=== PATIENT | female | born 2000 | race Caucasian/White ===

== ENCOUNTER 2021-01-24 16:55 | Emergency (ER) | payer OTHER ==
[~2021-01-24] VITALS: Ht 167.7 cm; Wt 61.2 kg
[2021-01-24] MEDS ORDERED: LIDOCAINE 1% INJ 20 ML 20 ML VIAL ONE (17:11)
[2021-01-24] MEDS ORDERED: LIDOCAINE 1% INJ 50 ML (XYLOCAINE) VIAL IJ ONE (17:15)
[2021-01-24] MEDS ORDERED: RX-CEPHALEXIN (KEFLEX) 250 MG CAP PPK#4 PO STA (17:40)
[2021-01-24] MEDS ORDERED: CEPH500T PO (17:44)
--- NOTE | 2021-01-24 17:48 | ED Upper Extremity ---
General Chief Complaint: Laceration Stated Complaint: RIGHT PALM LAC Nursing Triage Note: PT AMB TO [facility] WITH COMPLAINT OF LACERATION ON RIGHT HAND. STATES SHE WAS CARVING A PUMPKIN AND THE KNIFE SLIPPED. PT IS UNABLE TO MOVE RIGHT FIFTH FINGER. (AKASH DONOVAN) History of Present Illness Date Seen by Provider: Jan 24, 2021 Time Seen by Provider: 17:04 Initial Comments 20 year female presents for laceration to palm of right hand from kitchen knife. She was cutting the top off her pumpkin, when the knife slipped. Onset: just prior to arrival Pain/Injury Location: right hand, right 5th finger Method of Injury: incised (kitchen knife) (AKASH DONOVAN) Allergies and Home Medications Allergies Coded Allergies: No Known Drug Allergies (Unverified , 01/24/21) Patient Home Medication List Home Medication List Reviewed: Yes (AKASH DONOVAN) Cephalexin (Cephalexin) 500 Mg Tablet, 500 MG PO TID Prescribed by: AKASH DONOVAN on 01/24/21 7454 Review of Systems Constitutional: no symptoms reported : No Musculoskeletal: see HPI, other (inability to flex 5th digit, right hand) Skin: see HPI, other (laceration to volar surface right hand, over distal metacarpals 4th and 5th) (AKASH DONOVAN) All Other Systems Reviewed Negative Unless Noted: Yes (AKASH DONOVAN) Past Veqvhyi-Fnnhvi-Cfsszu Hx Patient Social History Tobacco Use?: No Use of E-Cig and/or Vaping dev: No Substance use?: No Alcohol Use?: No Pt feels they are or have been: No (AKASH DONOVAN) Family Medical History Reviewed Nursing Family Hx (AKASH DONOVAN) Physical Exam Vital Signs Vital Signs - First Documented 01/24/21 16:59 Temp 36.3 Pulse 118 Resp 20 B/P (MAP) 145/89 (107) Pulse Ox 96 O2 Delivery Room Air (BENTLEY PAYTON MD) Vital Signs Capillary Refill : (AKASH DONOVAN) Height, Weight, BMI Height: '" Weight: lbs. oz. kg; 21.00 BMI Method: General Appearance: WD/WN, no apparent distress Cardiovascular: normal peripheral pulses, regular rate, rhythm Respiratory: chest non-tender, lungs clear, normal breath sounds Hand: Right, laceration (4 cm, volar surface right hand, over distal 4-5th metacarpals), limited ROM (Full ext, resisted ext 5/5 5th finger right. Unable to actively flex at MCP, PIP or DIP. If passively flexed, she is unable to maintain flex of the 5th finger. She has full flex/ext of 1-4th digits right hand, power V/V with resisted flex/ext), soft tissue tenderness Neurologic/Psychiatric: no motor/sensory deficits, alert, normal mood/affect, oriented x 3 Skin: normal color, warm/dry (AKASH DONOVAN) Procedures/Interventions Wound Location: Upper Extremities (right hand) Wound Length (cm): 4 Wound's Depth, Shape: into muscle, linear Wound Explored: clean Irrigated w/ Saline (ccs): 500 Betadine Prep?: Yes Anesthesia: 1% Lidocaine Volume Anesthetic (ccs): 6 Wound Debrided: minimal Suture: Ethlion Suture Size: 4-0 Number of Sutures: 4 Sterile Dressing Applied?: Yes Progress Patient tolerated procedure well. Loosely approximated, sterile bulky dressing placed. (AKASH DONOVAN) Splinting and Joint Reduction : Pre-Proc Neuro Vasc Exam: normal Post-Proc Neuro Vasc Exam: normal Hand-Made Type: orthoglass Splint Application: Short Arm (Ulnar splint to right hand, with 4-5th fingers flex 45 degrees at MCP. ) (AKASH DONOVAN) Progress/Results/Core Measures Results/Orders Blood Pressure Mean: 107 Progress Progress Note : Time: 17:04 Progress Note Patient seen and evaluated, tetanus last given in 2017. [address] Bahena at [facility] in [place], he will see patient tomorrow and plan surgery for later this week. Recommended splint, with 5th finger flexed approx 45 degrees. (AKASH DONOVAN) Diagnostic Imaging Diagonstic Imaging: Xray Plain Films/CT/US/NM/MRI: chest Comments NAME: BELINDA MURRAY MED REC#: [id number] PT STATUS: REG ER : 2000 PHYSICIAN: AKASH DONOVAN ADMIT DATE: 01/24/21/ER Signed Date of Exam:01/24/21 HAND, RIGHT, 3 VIEWS CLINICAL HISTORY: Right hand pain. Hand laceration. COMPARISON: None. TECHNIQUE: Three views of the right hand. FINDINGS: There is no acute fracture or dislocation of the right hand. Alignment is anatomic. No focal osseous lesion is seen. Laceration is seen adjacent to the 3rd and 4th proximal phalanges. No radiopaque foreign bodies are seen. IMPRESSION: 1. No acute fracture or dislocation in the right hand. 2. Laceration adjacent to the 3rd and 4th proximal phalanges. No radiopaque foreign body. Dictated by: Dictated on workstation # [id number] Dict: 01/24/211809 Trans: 01/24/211825 [facility] [id number] Interpreted by: HERBERT DEE DO Electronically signed by: HERBERT DEE DO 01/24/211825 (AKASH DONOVAN) Departure Impression Primary Impression: Laceration of flexor tendon of right hand Qualified Codes: S66.821A - Laceration of other specified muscles, fascia and tendons at wrist and hand level, right hand, initial encounter Disposition: 01 HOME, SELF-CARE Condition: Improved Departure-Patient Inst. Decision time for Depature: 17:55 (AKASH DONOVAN) Referrals: NO,LOCAL PHYSICIAN (PCP/Family) Primary Care Physician Patient Instructions: Laceration Repair With Stitches (DC), Tendon Laceration (DC) Add. Discharge Instructions: Keep wound clean and dry, leave the current dressing in place and re-inforce, if needed. Follow up with Dr. Bahena: Call Monday at 8-9 am [phone] for appointment in the afternoon. Take antibiotics, as prescribed. Leave splint on at all times, until follow up with Dr. Bahena. You may alternate between Tylenol 650 mg and ibuprofen 600 mg every 4 hours for pain. If the dressing becomes saturated with blood reinforce with guaze, apply ice pack and elevate higher than your heart. Return to the Emergency Dept for new, urgent healthcare needs. All discharge instructions reviewed with patient and/or family. Voiced understanding. Scripts Cephalexin (Cephalexin) 500 Mg Tablet 500 MG PO TID, #15 TAB 0 Refills Prov: AKASH DONOVAN 01/24/21 ATTENDING PHYSICIAN NOTE: I was physically present as attending physician in the emergency department during the care of this patient, but I was not directly involved in the decision making or delivery of care for this patient. (BENTLEY PAYTON MD) AKASH DONOVAN Jan 24, 2021 17:48 BENTLEY PAYTON MD Jan 26, 2021 07:06
--- NOTE | 2021-01-24 18:28 | Diagnostic Imaging Report ---
CLINICAL HISTORY: Right hand pain. Hand laceration. COMPARISON: None. TECHNIQUE: Three views of the right hand. FINDINGS: There is no acute fracture or dislocation of the right hand. Alignment is anatomic. No focal osseous lesion is seen. Laceration is seen adjacent to the 3rd and 4th proximal phalanges. No radiopaque foreign bodies are seen. IMPRESSION: 1. No acute fracture or dislocation in the right hand. 2. Laceration adjacent to the 3rd and 4th proximal phalanges. No radiopaque foreign body. Dictated by: Dictated on workstation # [id number]
[2021-01-24 18:44] VITALS: BP 145/89
== END 2021-01-24 18:44 | disposition home or self-care (01) ==
LOC: ER 16:57
DX: S66.821A Laceration of other specified muscles, fascia and tendons at wrist and hand level, right hand, initial encounter (principal); W26.0XXA Contact with knife, initial encounter
CPT/HCPCS: 12002; 29125; 73130; 84703

== ENCOUNTER 2021-09-09 08:44 | Emergency (ER) | payer SELFPAY ==
[~2021-09-09] VITALS: Ht 170.1 cm; Wt 63.5 kg
[~2021-09-09 08:44] MED LIST: CEPH500T PO
--- NOTE | 2021-09-09 09:22 | ED General ---
General Chief Complaint: Exposure Stated Complaint: POST EXP RABIES VAC Nursing Triage Note: pt ambulatory to room. pt states about a week ago her hand was close to a bat for a couple of minutes. pt states she wants to make sure if she does or does not need post rabies exposure care. pt denies having any other complaints (JAYCE CHOI) History of Present Illness Date Seen by Provider: Sep 09, 2021 Time Seen by Provider: 09:05 Initial Comments 21 year old female presents to the ED today via private vehicle out of concern for a bat exposure she had 8 days ago. She is working at [employer] in [place], [place] this summer. 8 days ago she was cleaning a cabin and was reaching into the attic of the cabin to clean and reports noticing after several minutes there was a bat in close proximity to her hand that was hissing at her while she was cleaning. She denies feeling the bat scratch or bite her and did not see any skin abrasions or puncture salazar at the time. She has not had a potential rebies exposure in the past requiring prophylaxis treatment. Since the incident she denies fever, chills, malaise, hypersalivation, or inability to drink water. Since the incident she has just grown increasingly anxious about the exposure and came in today out of caution. Timing/Duration: Other (Bat exposure was 8 days ago.) (JAYCE CHOI) Allergies and Home Medications Allergies Coded Allergies: No Known Drug Allergies (Unverified , 01/24/21) Patient Home Medication List Home Medication List Reviewed: Yes (AURELIA LOPEZ MD) Cephalexin (Cephalexin) 500 Mg Tablet, 500 MG PO TID Prescribed by: AKASH DONOVAN on 01/24/211743 Review of Systems Review of Systems Constitutional: No chills, No fever, No malaise EENTM: other (Denies hypersalivation); No ear pain, No vision loss, No mouth pain, No throat swelling Respiratory: No cough, No short of breath Cardiovascular: No chest pain, No palpitations Gastrointestinal: No abdominal pain, No constipation, No diarrhea, No nausea, No vomiting Genitourinary: No dysuria; frequency (normal); No hematuria : No (LMP 3 weeks ago) Musculoskeletal: No back pain, No muscle cramps, No muscle weakness, No neck pain Skin: No change in color, No lesions, No rash Psychiatric/Neurological: Anxiety Hematologic/Lymphatic: No Symptoms Reported Immunological/Allergic: no symptoms reported (JAYCE CHOI) Past Rwkhbsc-Kqmuaz-Sevoqb Hx Patient Social History Tobacco Use?: No Use of E-Cig and/or Vaping dev: No Substance use?: No Alcohol Use?: No (JAYCE CHOI) Past Medical History Surgeries: Yes (tendon repair in right hand following laceration.) Respiratory: No Cardiac: No Neurological: No Reproductive Disorders: No Female Reproductive Disorders: Denies Genitourinary: No Gastrointestinal: No Musculoskeletal: No Endocrine: No HEENT: No Hearing Impairment: Denies Cancer: No Psychosocial: Yes Anxiety (w/ panic disorder) Integumentary: No Blood Disorders: No (JAYCE CHOI) Physical Exam Vital Signs Vital Signs - First Documented 09/09/21 09/09/21 08:54 10:10 Temp 36.4 Pulse 111 Resp 18 B/P (MAP) 153/93 (113) Pulse Ox 98 O2 Delivery Room Air (AURELIA LOPEZ MD) Vital Signs Capillary Refill : (JAYCE CHOI) Height, Weight, BMI Height: '" Weight: lbs. oz. kg; 21.00 BMI Method: General Appearance: No Apparent Distress, WD/WN, Anxious (mild) Eyes: Bilateral Eye Normal Inspection, Bilateral Eye PERRL, Bilateral Eye EOMI HEENT: PERRL/EOMI, TMs Normal, Pharynx Normal Neck: Full Range of Motion, Non Tender, Supple Respiratory: Lungs Clear, Normal Breath Sounds, No Respiratory Distress Cardiovascular: No Murmur, Normal Peripheral Pulses, Tachycardia (100-110's while in the room. reports frequently elevated due to anxiety. 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 Norm as Tested Skin: Normal Color, Warm/Dry, Other (no bitemarks, puncture salazar, or open wounds visible on hands or arms.) Lymphatic: No Adenopathy (JAYCE CHOI) Procedures/Interventions Suture Size: 4-0 (JAYCE CHOI) Progress/Results/Core Measures Suspected Sepsis SIRS Temperature: Pulse: 111 Respiratory Rate: 18 Blood Pressure 153 /93 Mean: 113 (JAYCE CHOI) Results/Orders Vital Signs/I&O 09/09/21 09/09/21 08:54 10:10 Temp 36.4 Pulse 111 97 Resp 18 18 B/P (MAP) 153/93 (113) 135/85 Pulse Ox 98 97 O2 Delivery Room Air (AURELIA LOPEZ MD) Vital Signs/I&O Capillary Refill : (JAYCE CHOI) Blood Pressure Mean: 113 Progress Note : Time: 10:02 Progress Note I have seen and examined the patient. I have reviewed and agree with medical students documentation and plan of care. Much research has been done on this "exposure to a bat". All of the information I have gathered indicates that this would be an extremely low, to 0 risk of debbie rabies. I did call the [facility] department and spoke with Alva the epidemiological nurse at the health department. She also indicates to me that this would be a very low risk exposure to no risk exposure. We do not believe at this time it warrants postexposure prophylaxis. Patient is completely asymptomatic. She is 8 days post interaction around the back. She has no open wounds on her hands or extremities or face. She did not have direct physical contact with the bat. From the research this morning she would have to have direct physical contact with the bat. She states she was only there for couple of minutes when she determined that the bat was present. It was "hissing" at her. Initially she was concerned that maybe with his saying it had spewed saliva and she may have rubbed her eyes. I do not think that even this would constitute an actual exposure as I do not believe that the hissing would have produced much back saliva to have inoculated her skin and transmitted to her eyes. That is if in fact she had rubbed her eyes while she was cleaning in the attic. Patient is a little bit apprehensive but comfortable with the information provided. No other clinical or objective findings to warrant further testing or evaluation from the emergency department. All questions are sought and answered. (AURELIA LOPEZ MD) Departure Impression Primary Impression: Encounter for patient concern about exposure to infectious organism Disposition: 01 HOME, SELF-CARE Condition: Stable Departure-Patient Inst. Decision time for Depature: 10:06 (AURELIA LOPEZ MD) Referrals: NO,LOCAL PHYSICIAN (PCP/Family) Primary Care Physician Add. Discharge Instructions: Please follow-up with your primary care physician as needed. Return to the emergency department for any new, concerning or emergent complaints. JAYCE CHOI Sep 09, 2021 09:22 AURELIA LOPEZ MD Sep 09, 2021 10:07
[2021-09-09 10:10] VITALS: BP 135/85
== END 2021-09-09 10:11 | disposition home or self-care (01) ==
LOC: EDUNIT# 08:44 → ER 08:47
DX: Z20.9 Contact with and (suspected) exposure to unspecified communicable disease (principal)
CPT/HCPCS: 99281

== ENCOUNTER 2021-09-09 10:49 | Emergency (ER) | payer SELFPAY ==
[~2021-09-09] VITALS: Ht 170.1 cm; Wt 70.1 kg
[2021-09-09 11:00] VITALS: BP 140/95
[2021-09-09] MEDS ORDERED: RABIES VACCINE HUMAN DIPL CELL 1 ML/2.5 UNITS SYR IM ONE (11:15)
[2021-09-09] MEDS ORDERED: RABIES IMMUNE GLOBULIN (KEDRAB) 1,500 UNITS/10 ML IM ONE (11:15)
--- NOTE | 2021-09-09 11:18 | ED General ---
General Chief Complaint: Exposure Stated Complaint: POST EXP VAC Nursing Triage Note: pt ambulatory to room. pt was seen in ER earlier today for possible rabies exposure. pt was in close contact to a bat "about a week ago" Source of Information: Patient Exam Limitations: No Limitations History of Present Illness Date Seen by Provider: Sep 09, 2021 Time Seen by Provider: 11:15 Initial Comments Patient is a 21-year-old female who presents ED requesting rabies vaccine. She was seen here earlier and had concern for bat exposure 8 days ago at [facility] this summer. She was cleaning out a cabin and was reaching to the attic of the cabin to clean and reports noticing a bat in her proximity to her hand. She denies feeling a scratch or bite but did not see any skin abrasions or puncture salazar at that time. She has not had potential rabies exposure in the past and requesting prophylactic treatment at this time. Patient is up-to-date on her tetanus Allergies and Home Medications Allergies Coded Allergies: No Known Drug Allergies (Unverified , 01/24/21) Patient Home Medication List Home Medication List Reviewed: Yes Cephalexin (Cephalexin) 500 Mg Tablet, 500 MG PO TID Prescribed by: AKASH DONOVAN on 01/24/21 6321 Review of Systems Review of Systems Constitutional: No chills, No diaphoresis, No fever, No malaise, No weakness EENTM: No blurred vision, No double vision Respiratory: No cough Cardiovascular: No chest pain Gastrointestinal: No abdominal pain, No diarrhea, No dysphagia, No nausea, No vomiting Genitourinary: No decreased output, No discharge Musculoskeletal: No back pain, No joint pain Skin: No change in hair/nails All Other Systems Reviewed Negative Unless Noted: Yes Past Bxihren-Bdojpm-Ezcesb Hx Patient Social History Tobacco Use?: No Use of E-Cig and/or Vaping dev: No Substance use?: No Alcohol Use?: No Immunizations Up To Date Influenza Vaccine Up-to-Date: No; Not Current Past Medical History Surgeries: Yes (tendon repair in right hand following laceration.) Respiratory: No Cardiac: No Neurological: No Reproductive Disorders: No Female Reproductive Disorders: Denies Genitourinary: No Gastrointestinal: No Musculoskeletal: No Endocrine: No HEENT: No Hearing Impairment: Denies Cancer: No Psychosocial: Yes Anxiety Integumentary: No Blood Disorders: No Physical Exam Vital Signs Vital Signs - First Documented 09/09/21 11:00 Temp 36.5 Pulse 11 Resp 18 B/P (MAP) 140/95 (110) Pulse Ox 98 Capillary Refill : Height, Weight, BMI Height: '" Weight: lbs. oz. kg; 24.00 BMI Method: General Appearance: No Apparent Distress, WD/WN Eyes: Bilateral Eye Normal Inspection, Bilateral Eye PERRL, Bilateral Eye EOMI HEENT: PERRL/EOMI, TMs Normal, Normal ENT Inspection, Pharynx Normal Neck: Full Range of Motion, Normal Inspection, Non Tender, Supple Respiratory: Chest Non Tender, Lungs Clear, Normal Breath Sounds, No Accessory Muscle Use Cardiovascular: Regular Rate, Rhythm, No Edema, No Gallop, No JVD, No Murmur Gastrointestinal: Normal Bowel Sounds, No Organomegaly, No Pulsatile Mass, Non Tender, Soft Extremity: Normal Capillary Refill, Normal Inspection, Normal Range of Motion, Non Tender Neurologic/Psychiatric: Alert, Oriented x3, No Motor/Sensory Deficits, Normal 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/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, 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 Norm as Tested Skin: Normal Color, Warm/Dry Procedures/Interventions Suture Size: 4-0 Progress/Results/Core Measures Suspected Sepsis SIRS Temperature: Pulse: 11 Respiratory Rate: 18 Blood Pressure 140 /95 Mean: 110 Results/Orders My Orders Orders - DERECK WONG Rabies Vaccine Human Dipl Cell (Rabavert (09/09/21 11:15) Rabies Immune Globulin/Pf 10ml (Kedrab 1 (09/09/21 11:15) Vital Signs/I&O 09/09/21 11:00 Temp 36.5 Pulse 11 Resp 18 B/P (MAP) 140/95 (110) Pulse Ox 98 Capillary Refill : Blood Pressure Mean: 110 Departure Communication (PCP) Right before administration of the rabies vaccine immunoglobulin patient refused. Patient initially came to the ED stating that she was wanting the rabies vaccine and immunoglobulin. She was concerned that the bat was "hissing" and may have had some saliva on her hand and she may have touched her eye. This occurred 8 days ago. She has no evidence of scratches or abrasions to her body. The bat did not touch her. She was strongly for the rabies vaccine and immunoglobulin. Discussed the risk and benefits of taking the vaccine and immune to go up. She acknowledges. Luis up 1400 ml and rabies vaccine 1mg. Right before administration patient refused. Discussed if she is wanting the immunoglobulin in the vaccine series I recommend not waiting much longer. Patient agrees with plan of action. Discussed monitoring symptoms. Impression Primary Impression: Exposure to bat without known bite Disposition: HOME, SELF-CARE Condition: Stable Departure-Patient Inst. Decision time for Depature: 12:08 [facility]: [facility] [place] NO,LOCAL PHYSICIAN (PCP) Primary Care Physician Patient Instructions: Rabies (DC) Add. Discharge Instructions: Need to continue the rate be vaccine on day 3, day 7 and day 14 All discharge instructions reviewed with patient and/or family. Voiced understanding. DERECK WONG Sep 09, 2021 11:18
== END 2021-09-09 13:02 | disposition home or self-care (01) ==
LOC: EDUNIT# 10:49 → ER 10:51
DX: Z20.3 Contact with and (suspected) exposure to rabies (principal)
CPT/HCPCS: 99281